=== PATIENT | female | born 1980 | race Native Hawaiian/Other Pacific Islander ===

== ENCOUNTER 2016-11-19 03:48 | Emergency (ER) | payer BC ==
[~2016-11-19] VITALS: Ht 152.4 cm; Wt 90.7 kg
[2016-11-19] MEDS ORDERED: ATEN25TA21 PO (04:02)
[2016-11-19] MEDS ORDERED: WELLBUTRIN100 M1 PO (04:03)
[2016-11-19] MEDS ORDERED: PROZAC10 MG PO (04:03)
[2016-11-19 04:36] LABS: PLATELET COUNT 207 K/uL (152-353)
[2016-11-19 04:37] LABS: POTASSIUM 3.7 mmol/L (3.6-5.2); SODIUM 141 mmol/L (136-145)
[2016-11-19 05:50] VITALS: BP 142/74; TEMP 98.9
== END 2016-11-19 05:53 | disposition home or self-care (01) ==
LOC: ED 03:48
DX: N20.1 Calculus of ureter (principal); N23 Unspecified renal colic
CPT/HCPCS: 36415; 74022; 80053; 81000; 85027; 96374; 96375; 96376; 99284; J1885; J2405; J2550